=== PATIENT | female | born 1955 | race American Indian/Alaskan Native ===

== ENCOUNTER 2016-05-01 03:06 | Inpatient (IN) | payer MEDICAID ==
[2016-05-01] MEDS ORDERED: MORPHINE IV ONE (06:34)
[2016-05-01] MEDS ORDERED: ZOFRAN IV ONE (06:34)
[2016-05-01] MEDS ORDERED: ATIVAN IV ONE (06:34)
[2016-05-01 07:51] LABS: ISTAT Base Excess -6; ISTAT HCO3 20.6; ISTAT PCO2 43.6 (35-45); ISTAT PH 7.282 (7.35-7.45); ISTAT PO2 57 (80-105); ISTAT SO2 85; ISTAT TCO2 22
--- NOTE | 2016-05-01 07:53 | XRay Report ---
Single view chest: Compared to 09/11/15. History: Hypertension. Findings: Cardiomegaly. Trachea is midline. Stable Port-A-Cath. No consolidation, pneumothorax or pleural effusion. Impression: Cardiomegaly. No acute lung changes.
--- NOTE | 2016-05-01 08:38 | Admit Criteria Form ---
Admission Criteria Documentation: HEART FAILURE: COMMON COMPLICATIONS Clinical Indications for Inpatient Care (Place 'X' for any and all applicable criteria): Ongoing inpatient care may be indicated for heart failure with ANY ONE of the following (1)(2)(3)(4)(5): [ ]I. Ongoing need for care for primary condition requiring frequent therapy adjustments because of changes in cardiac function (eg, drug dosage changes for drugs that are renally metabolized) [ ]II. New-onset heart failure [ ]III. Heart failure with decreased urine output not responsive to attempts to optimize volume status [ ]IV. Acute cardiac ischemia causing or associated with failure [X ]V. Complications of heart failure, including ANY ONE of the following: [ ]a) Pericardial effusion [ ]b) Symptomatic pleural effusion [ X]c) O2 saturation <90% or PO2 < 60 mm Hg (8.0 kPa) on room air or require baseline supplemental O2 [ X]d) Tachypnea [X ]e) Dyspnea [ ]f) Syncope [ ]g) Change in mental status [ ]h) Acute renal insufficiency that is severe (reduction of more than 50% in estimated glomerular filtration rate from baseline) or progressive reduction of more than 25% in estimated glomerular filtration rate from baseline, with creatinine continuing to rise) [ ]i) Hemodynamic instability [ ]j) Anasarca [ ]k) Clinically significant metabolic abnormalities due to heart failure (eg, new-onset metabolic acidosis) Extended stay beyond goal length of stay for primary condition may be needed until ALL of the following are present(1)(3): [ ]a) Stable and effective diuretic regimen established (or patient on stable dialysis regimen if in chronic renal failure) [ ]b) Breathing comfortably at rest [ ]c) Saturation of arterial oxygen greater than 90% or at acceptable baseline [ ]d) Pulmonary edema absent or improved [ ]e) Hemodynamic stability [ ]f) Volume status acceptable on oral medication [ ]g) Peripheral or sacral edema absent or improved [ ]h) Renal function stable and manageable at a lower level of care [ ]i) Complications (eg, pleural effusion) resolved or manageable at a lower level of care [ ]j) Patient or caregiver has received written discharge instructions or educational material addressing activity level, diet, discharge medications, follow-up appointment, weight monitoring, and what to do if symptoms worsen The original [employer] content created by [employer] has been revised. The portions of the content which have been revised are identified through the use of italic text or in bold, and [facility] has neither reviewed nor approved the modified material.All other unmodified content is copyright [facility]. Please see references footnoted in the original [facility] edition 2016 Admission Criteria Met: Yes
[2016-05-01 08:39] LABS: Eosinophils % (Auto) 3.2 % (0.0-4.3); Hematocrit 42.7 % (30.3-42.9); Hemoglobin 13.5 gm/dl (10.1-14.3); Mean Corpuscular HGB Conc 32 % (30-34); Mean Corpuscular Hemoglobin 29 pg (28-32); Mean Corpuscular Volume 91 fl (79-97); Platelet Count 218 K/mm3 (140-440); Red Blood Count 4.67 M/mm3 (3.65-5.03); Red Cell Distribution Width 14.3 % (13.2-15.2); White Blood Count 5.6 K/mm3 (4.5-11.0)
[2016-05-01 08:48] LABS: Anion Gap 19 mmol/L; BUN/Creatinine Ratio 16.15; Blood Urea Nitrogen 21 mg/dL (7-17); Calcium 8.7 mg/dL (8.4-10.2); Carbon Dioxide 22 mmol/L (22-30); Chloride 103.5 mmol/L (98-107); Glucose 157 mg/dL (65-100); INR 1.04 (0.87-1.13); Potassium 4.3 mmol/L (3.6-5.0); Sodium 140 mmol/L (137-145)
[2016-05-01 08:49] LABS: Partial Thromboplastin Time 26.9 Sec. (24.2-36.6)
[2016-05-01 08:50] LABS: Alanine Aminotransferase 19 units/L (7-56); Albumin/Globulin Ratio 1.7 %; Alkaline Phosphatase 63 units/L (35-129); Bilirubin,Total 0.3 mg/dL (0.1-1.2); Total Protein 6.4 g/dL (6.3-8.2)
[2016-05-01 08:56] LABS: Bilirubin,Direct < 0.2 mg/dL (0-0.2); Bilirubin,Indirect 0.1 mg/dL
--- NOTE | 2016-05-01 09:23 | Emergency Department Report ---
ED General Adult HPI - General Chief complaint: Chest Pain Stated complaint: EDELMIRA Time Seen by Provider: 05/01/16 06:19 Source: patient, EMS Mode of arrival: Stretcher Limitations: No Limitations - History of Present Illness Initial comments: Presents via EMS for difficulty in breathing and pain. She states that she's had chest pressure for 2 weeks. Really she stated that she had "elephants dancing in her head". However on arrival she did not complain of significant headache. She was quite anxious and hyperventilating. I discussed her case with Dr. Ortiz who is familiar with this patient. He states that she has a history of crack cocaine abuse. The patient herself states that she has emphysema and has never been able to get home oxygen although she states she thinks she needs it. She is tobacco dependent. Denies any recent fever or chills. -: Gradual, week(s) Location: chest (pressure 2 weeks intermittently) Radiation: non-radiation Quality: other Consistency: intermittent, now resolved (headache resolved) Improves with: none Worsens with: none Associated Symptoms: denies other symptoms, chest pain, shortness of breath Treatments Prior to Arrival: none - Related Data Home Medications Medication Instructions Recorded Confirmed Last Taken Albuterol Sulfate [Proventil HFA] 1 - 2 puff IH Q4H PRN 11/22/12 05/01/16 04:00 1-2 Clopidogrel [Plavix] 75 mg PO QDAY 11/22/12 05/01/16 12/30/12 04:00 75mg Losartan [Cozaar] 100 mg PO QDAY 11/22/12 05/01/16 12/30/12 04:00 100mg hydrALAZINE [Apresoline TAB] 25 mg PO Q12H 11/22/12 05/01/16 12/30/12 04:00 25mg Gabapentin [Neurontin] 300 mg PO Q8HR 09/11/15 05/01/16 Unknown Insulin Detemir [Levemir VIAL] 40 unit SQ QHS 09/15/15 05/01/16 09/11/15 20:00 40 units ALPRAZolam [Xanax TAB] 0.5 mg PO TID PRN 05/01/16 05/01/16 Unknown Allopurinol [Zyloprim] 100 mg PO QDAY 05/01/16 05/01/16 Unknown Carvedilol [Coreg] 6.25 mg PO BID 05/01/16 05/01/16 Unknown Citalopram [celeXA] 20 mg PO QDAY 05/01/16 05/01/16 Unknown Clopidogrel [Plavix] 75 mg PO QDAY 05/01/16 05/01/16 Unknown Furosemide [Lasix TAB] 40 mg PO QDAY 05/01/16 05/01/16 Unknown HYDROcodone/APAP 10-325 [[place] 1 each PO DAILY 05/01/16 05/01/16 Unknown 10/325] Hydrochlorothiazide [Hctz] 12.5 mg PO QDAY 05/01/16 05/01/16 Unknown Pantoprazole [Protonix] 40 mg PO QDAY 05/01/16 05/01/16 Unknown Ranitidine HCl [Acid Control] 150 mg PO DAILY 05/01/16 05/01/16 Unknown Zolpidem [Ambien] 5 mg PO QHS PRN 05/01/16 05/01/16 Unknown amLODIPine [Norvasc] 10 mg PO DAILY 05/01/16 05/01/16 Unknown Allergies Allergy/AdvReac Type Severity Reaction Status Date / Time BONNIE Inhibitors Allergy Rash Verified 10/21/14 14:32 aspirin Allergy Rash Verified 10/21/14 14:32 peach [[place]] Allergy Rash Verified 10/21/14 14:32 ED Review of Systems ROS: Stated complaint: EDELMIRA Other details as noted in HPI Constitutional: denies: chills, fever Eyes: denies: eye pain, eye discharge, vision change ENT: denies: ear pain, throat pain Respiratory: shortness of breath. denies: cough, wheezing Cardiovascular: chest pain. denies: palpitations Endocrine: no symptoms reported Gastrointestinal: denies: abdominal pain, nausea, diarrhea Genitourinary: denies: urgency, dysuria, discharge Musculoskeletal: denies: back pain, joint swelling, arthralgia Skin: denies: rash, lesions Neurological: denies: headache, weakness, paresthesias Psychiatric: anxiety. denies: depression Hematological/Lymphatic: denies: easy bleeding, easy bruising ED Past Medical Hx - Past Medical History Hx Hypertension: Yes Hx Heart Attack/AMI: Yes Hx Congestive Heart Failure: Yes Hx Diabetes: Yes Hx Renal Disease: Yes (history of dialysis but has not required dialysis since May 2012) Hx Headaches / Migraines: Yes Hx COPD: Yes Additional medical history: History of [place] in the 1980s - Surgical History Additional Surgical History: stents in bilateral kidneys - Social History Smoking Status: Never Smoker Substance Use Type: Alcohol, Cocaine (according to Dr. Ortiz) - Medications Home Medications: Home Medications Medication Instructions Recorded Confirmed Last Taken Type Albuterol Sulfate [Proventil HFA] 1 - 2 puff IH Q4H PRN 11/22/12 05/01/16 04:00 History 1-2 Clopidogrel [Plavix] 75 mg PO QDAY 11/22/12 05/01/16 12/30/12 04:00 History 75mg Losartan [Cozaar] 100 mg PO QDAY 11/22/12 05/01/16 12/30/12 04:00 History 100mg hydrALAZINE [Apresoline TAB] 25 mg PO Q12H 11/22/12 05/01/16 12/30/12 04:00 History 25mg Gabapentin [Neurontin] 300 mg PO Q8HR 09/11/15 05/01/16 Unknown History Insulin Detemir [Levemir VIAL] 40 unit SQ QHS 09/15/15 05/01/16 09/11/15 20:00 History 40 units ALPRAZolam [Xanax TAB] 0.5 mg PO TID PRN 05/01/16 05/01/16 Unknown History Allopurinol [Zyloprim] 100 mg PO QDAY 05/01/16 05/01/16 Unknown History Carvedilol [Coreg] 6.25 mg PO BID 05/01/16 05/01/16 Unknown History Citalopram [celeXA] 20 mg PO QDAY 05/01/16 05/01/16 Unknown History Clopidogrel [Plavix] 75 mg PO QDAY 05/01/16 05/01/16 Unknown History Furosemide [Lasix TAB] 40 mg PO QDAY 05/01/16 05/01/16 Unknown History HYDROcodone/APAP 10-325 [[place] 1 each PO DAILY 05/01/16 05/01/16 Unknown History 10/325] Hydrochlorothiazide [Hctz] 12.5 mg PO QDAY 05/01/16 05/01/16 Unknown History Pantoprazole [Protonix] 40 mg PO QDAY 05/01/16 05/01/16 Unknown History Ranitidine HCl [Acid Control] 150 mg PO DAILY 05/01/16 05/01/16 Unknown History Zolpidem [Ambien] 5 mg PO QHS PRN 05/01/16 05/01/16 Unknown History amLODIPine [Norvasc] 10 mg PO DAILY 05/01/16 05/01/16 Unknown History ED Physical Exam - General Limitations: No Limitations General appearance: alert, in no apparent distress, anxious - Head Head exam: Present: atraumatic, normocephalic - Eye Eye exam: Present: normal appearance. Absent: scleral icterus - ENT ENT exam: Present: normal exam, mucous membranes moist - Neck Neck exam: Present: normal inspection - Respiratory Respiratory exam: Present: normal lung sounds bilaterally, other ( hyperventilating). Absent: respiratory distress - Cardiovascular Cardiovascular Exam: Present: regular rate, normal rhythm. Absent: systolic murmur, diastolic murmur, rubs, gallop - GI/Abdominal GI/Abdominal exam: Present: soft, normal bowel sounds. Absent: distended, tenderness, guarding, rebound - Extremities Exam Extremities exam: Present: normal inspection - Back Exam Back exam: Present: normal inspection - Neurological Exam Neurological exam: Present: alert, oriented X3, CN II-XII intact. Absent: motor sensory deficit - Psychiatric Psychiatric exam: Present: agitated, anxious - Skin Skin exam: Present: warm, dry, intact, normal color. Absent: rash ED Course Vital Signs 05/01/16 05/01/16 05/01/16 03:27 03:30 03:40 Temperature Pulse Rate 87 Respiratory 20 Rate Blood Pressure 177/122 171/115 171/115 Blood Pressure [Left] O2 Sat by Pulse 99 99 Oximetry 05/01/16 05/01/16 05/01/16 03:43 03:49 03:50 Temperature 97.8 F 97.8 F Pulse Rate 88 88 81 Respiratory 20 24 Rate Blood Pressure 171/155 171/115 Blood Pressure 171/115 [Left] O2 Sat by Pulse 98 98 99 Oximetry 05/01/16 05/01/16 05/01/16 04:00 04:10 04:20 Temperature Pulse Rate 83 80 86 Respiratory 22 22 29 H Rate Blood Pressure 165/113 165/113 165/113 Blood Pressure [Left] O2 Sat by Pulse 97 96 98 Oximetry 02/17/17 02/17/17 02/17/17 04:30 04:40 04:50 Temperature Pulse Rate 75 88 72 Respiratory 28 H 18 20 Rate Blood Pressure 176/107 176/107 176/107 Blood Pressure [Left] O2 Sat by Pulse 95 99 97 Oximetry 05/01/16 05/01/16 05/01/16 05:00 05:10 05:20 Temperature Pulse Rate 77 78 80 Respiratory 24 22 24 Rate Blood Pressure 162/126 162/126 162/126 Blood Pressure [Left] O2 Sat by Pulse 99 99 99 Oximetry 05/01/16 05/01/16 05/01/16 05:30 05:40 05:50 Temperature Pulse Rate 67 67 75 Respiratory 22 20 21 Rate Blood Pressure 183/109 183/109 183/109 Blood Pressure [Left] O2 Sat by Pulse 97 98 94 Oximetry 05/01/16 05/01/16 05/01/16 06:00 06:10 06:20 Temperature Pulse Rate 78 83 Respiratory 19 14 Rate Blood Pressure 175/108 175/108 175/108 Blood Pressure [Left] O2 Sat by Pulse 92 96 98 Oximetry 05/01/16 05/01/16 05/01/16 06:30 06:40 06:50 Temperature Pulse Rate Respiratory Rate Blood Pressure 175/108 182/110 182/110 Blood Pressure [Left] O2 Sat by Pulse 97 97 97 Oximetry 05/01/16 05/01/16 05/01/16 06:57 07:00 07:10 Temperature Pulse Rate 86 85 Respiratory 20 29 H 25 H Rate Blood Pressure 144/80 144/80 Blood Pressure [Left] O2 Sat by Pulse 92 90 Oximetry 05/01/16 05/01/16 05/01/16 07:20 07:30 07:40 Temperature Pulse Rate 84 85 85 Respiratory 18 12 15 Rate Blood Pressure 144/80 178/126 178/126 Blood Pressure [Left] O2 Sat by Pulse 92 95 94 Oximetry 05/01/16 05/01/16 05/01/16 07:50 08:00 08:10 Temperature Pulse Rate 87 82 79 Respiratory 24 20 16 Rate Blood Pressure 178/126 174/116 174/116 Blood Pressure [Left] O2 Sat by Pulse 96 98 98 Oximetry 05/01/16 05/01/16 05/01/16 08:20 08:30 08:40 Temperature Pulse Rate 81 80 88 Respiratory 20 20 28 H Rate Blood Pressure 174/116 157/106 157/106 Blood Pressure [Left] O2 Sat by Pulse 94 95 91 Oximetry 05/01/16 05/01/16 05/01/16 08:50 09:00 09:10 Temperature Pulse Rate 78 82 80 Respiratory 17 16 15 Rate Blood Pressure 157/106 158/103 157/106 Blood Pressure [Left] O2 Sat by Pulse 99 95 94 Oximetry 05/01/16 09:20 Temperature Pulse Rate 86 Respiratory 18 Rate Blood Pressure 157/106 Blood Pressure [Left] O2 Sat by Pulse 90 Oximetry - Reevaluation(s) Reevaluation #1: The patient was given analgesia and anxiolytic on arrival. This was of benefit. On reexamination found the patient to be in no distress with pulse oximetry of 98% on 3 L. Nurse does note that when the patient is sleepy at her pulse oximetry does go down into the low 90s. There was 1 value even lower. Patient was given labetalol for blood pressure management. I spoke to Dr. Ortiz who requested that the hospitalist admit. I spoke to Dr. Martino who will be admitting the patient. Her chest x-ray did not show signs of cardiac decompensation. Her troponin was negative. Her EKG shows no evidence of acute ischemia. He has had been previously negative nuclear perfusion study. She is a patient of [facility]. 05/01/16 09:57 ED Medical Decision Making - Lab Data Result diagrams: 05/01/16 Unknown 05/01/16 Unknown Laboratory Results - last 24 hr 05/01/16 05/01/16 05/01/16 07:46 Unknown Unknown WBC 5.6 RBC 4.67 Hgb 13.5 Hct 42.7 MCV 91 MCH 29 MCHC 32 RDW 14.3 Plt Count 218 Lymph % (Auto) 34.2 Hendricks % (Auto) 8.7 H Eos % (Auto) 3.2 Baso % (Auto) 1.0 Lymph # 1.9 Hendricks # 0.5 Eos # 0.2 Baso # 0.1 Seg Neutrophils % 52.9 Seg Neutrophils # 3.0 PT INR APTT D-Dimer POC ABG pH 7.282 L POC ABG pCO2 43.6 POC ABG pO2 57 L POC ABG HCO3 20.6 POC ABG Total CO2 22 POC ABG O2 Sat 85 POC ABG Base Excess -6 VBG pH FiO2 28 Sodium 140 Potassium 4.3 Chloride 103.5 Carbon Dioxide 22 Anion Gap 19 BUN 21 H Creatinine 1.3 H Estimated GFR 51 BUN/Creatinine Ratio 16.15 Glucose 157 H Calcium 8.7 Total Bilirubin Direct Bilirubin Indirect Bilirubin AST ALT Alkaline Phosphatase Troponin T < 0.010 NT-Pro-B Natriuret Pep Total Protein Albumin Albumin/Globulin Ratio Ketones 05/01/16 05/01/16 05/01/16 Unknown Unknown Unknown WBC RBC Hgb Hct MCV MCH MCHC RDW Plt Count Lymph % (Auto) Hendricks % (Auto) Eos % (Auto) Baso % (Auto) Lymph # Hendricks # Eos # Baso # Seg Neutrophils % Seg Neutrophils # PT 13.5 INR 1.04 APTT 26.9 D-Dimer 169.64 POC ABG pH POC ABG pCO2 POC ABG pO2 POC ABG HCO3 POC ABG Total CO2 POC ABG O2 Sat POC ABG Base Excess VBG pH FiO2 Sodium Potassium Chloride Carbon Dioxide Anion Gap BUN Creatinine Estimated GFR BUN/Creatinine Ratio Glucose Calcium Total Bilirubin 0.3 Direct Bilirubin < 0.2 Indirect Bilirubin 0.1 AST 18 ALT 19 Alkaline Phosphatase 63 Troponin T NT-Pro-B Natriuret Pep 1793 H Total Protein 6.4 Albumin 4.0 Albumin/Globulin Ratio 1.7 Ketones 1.5 05/01/16 Unknown WBC RBC Hgb Hct MCV MCH MCHC RDW Plt Count Lymph % (Auto) Hendricks % (Auto) Eos % (Auto) Baso % (Auto) Lymph # Hendricks # Eos # Baso # Seg Neutrophils % Seg Neutrophils # PT INR APTT D-Dimer POC ABG pH POC ABG pCO2 POC ABG pO2 POC ABG HCO3 POC ABG Total CO2 POC ABG O2 Sat POC ABG Base Excess VBG pH 7.327 FiO2 Sodium Potassium Chloride Carbon Dioxide Anion Gap BUN Creatinine Estimated GFR BUN/Creatinine Ratio Glucose Calcium Total Bilirubin Direct Bilirubin Indirect Bilirubin AST ALT Alkaline Phosphatase Troponin T NT-Pro-B Natriuret Pep Total Protein Albumin Albumin/Globulin Ratio Ketones - EKG Data -: EKG Interpreted by Me EKG shows normal: sinus rhythm, intervals, QRS complexes, ST-T waves Rate: normal - EKG Data Interpretation: LVH (no evidence of acute ischemia), other (affect axis deviation) - Radiology Data interpreted by me: Chest x-ray shows no acute process Critical care attestation.: If time is entered above; I have spent that time in minutes in the direct care of this critically ill patient, excluding procedure time. ED Disposition Clinical Impression: Dilated cardiomyopathy, Hypoxia Chest pain Qualifiers: Chest pain type: unspecified Qualified Code(s): R07.9 - Chest pain, unspecified Acute headache Qualifiers: Headache type: unspecified Intractability: not intractable Qualified Code(s): R51 - Headache COPD (chronic obstructive pulmonary disease) Qualifiers: COPD type: unspecified COPD Qualified Code(s): J44.9 - Chronic obstructive pulmonary disease, unspecified Disposition: OP ADMITTED IP TO THIS HOSP Is pt being admited?: Yes Does the pt Need Aspirin: Yes Condition: Stable Instructions: Chest Pain (ED), Chronic Obstructive Pulmonary Disease (ED) Referrals: JUAN F ORTIZ DO [Primary Care Provider] - 3-5 Days Time of Disposition: 10:04
[2016-05-01] MEDS ORDERED: NORMODYNE IV ONE (09:24)
[2016-05-01] MEDS ORDERED: LOVENOX SUB-Q SCH (10:00)
[2016-05-01] MEDS ORDERED: D50W (25GM) IV PRN (10:04)
[2016-05-01] MEDS ORDERED: SODIUM CHLORIDE FLUSH SYRINGE 10 ML IV PRN (10:10)
[2016-05-01] MEDS ORDERED: BABY ASPIRIN PO STA (10:10)
[2016-05-01] MEDS ORDERED: DUONEB 0.5 MG-3 MG/3 ML SOLN IH ONE (10:13)
[2016-05-01] MEDS ORDERED: LASIX PO SCH (11:00)
[2016-05-01] MEDS ORDERED: DUONEB 0.5 MG-3 MG/3 ML SOLN IH SCH (12:00)
[2016-05-01] MEDS: NOVOLOG SUB-Q SCH ×3 (13:03→21:27)
[2016-05-01] MEDS ORDERED: NORVASC ONE (13:03)
[2016-05-01] MEDS ORDERED: COREG ONE (13:03)
[2016-05-01] MEDS ORDERED: PLAVIX ONE (13:04)
[2016-05-01] MEDS ORDERED: celeXA ONE (13:04)
[2016-05-01] MEDS ORDERED: NORCO 10/325 ONE (13:05)
[2016-05-01] MEDS: celeXA PO SCH (13:13)
[2016-05-01] MEDS: COREG PO SCH ×2 (13:13→21:23)
[2016-05-01] MEDS: APRESOLINE PO SCH ×2 (13:13→21:31)
[2016-05-01] MEDS: PLAVIX PO SCH (13:14)
[2016-05-01] MEDS: NORCO 10/325 PO SCH (13:14)
[2016-05-01] MEDS: NORVASC PO SCH (13:14)
[2016-05-01 13:27] LABS: Urine Drugs of Abuse Note Disclamer
[2016-05-01] MEDS: PROVENTIL IH SCH ×4 (13:33→23:27)
--- NOTE | 2016-05-01 15:15 | Event Note ---
Date: 05/01/16 I have spoken to thr ER Doc, and records/notes reviewed. Patient presented with SOB/anxiety w/u showed elevated PBNP ,consistent with her CMP/CHF, also she is positive for THC,.Her ABG shows PH of 7.22.. She has been grossly non complaint in the office.Sh will get diuretic.
[2016-05-01] MEDS: LOVENOX SUB-Q SCH (18:00)
--- NOTE | 2016-05-01 19:22 | History and Physical Report ---
History of Present Illness Date of examination: 05/01/16 Date of admission: 05/01/16 09:58 Chief complaint: Shortness of breath History of present illness: Patient is a 60-year-old lady who was a history of bilateral ear infection hypertension COPD and diabetes mellitus left-sided chest pain that was dull in nature, nonradiating. Not associated diaphoresis. However chest pain was described as dull and very severe. Patient presented emergency department where patient was found to be hyperventilating with abnormal ABG with a pH of 7.28. Chest x-ray shows cardiomegaly with no acute changes. BUN was 21 and creatinine was 1.3. ProBNP was 1793 and glucose was 157. Initial troponin level was normal. Admission was therefore requested. Past History Past Medical History: acute [place], COPD (w), diabetes, hypertension, other (had end -stage renal disease on hemodialysis that was eventually discontinued in 2012 after having a function improved) Past Surgical History: Other (renal stents many years ago) Social history: denies: smoking, alcohol abuse Family history: denies: no significant family history Medications and Allergies Allergies Allergy/AdvReac Type Severity Reaction Status Date / Time BONNIE Inhibitors Allergy Rash Verified 10/21/14 14:32 aspirin Allergy Rash Verified 10/21/14 14:32 peach [[place]] Allergy Rash Verified 10/21/14 14:32 Home Medications Medication Instructions Recorded Confirmed Last Taken Type Albuterol Sulfate [Proventil HFA] 1 - 2 puff IH Q4H PRN 11/22/12 05/01/16 04:00 History 1-2 Clopidogrel [Plavix] 75 mg PO QDAY 11/22/12 05/01/16 12/30/12 04:00 History 75mg Losartan [Cozaar] 100 mg PO QDAY 11/22/12 05/01/16 12/30/12 04:00 History 100mg hydrALAZINE [Apresoline TAB] 25 mg PO Q12H 11/22/12 05/01/16 12/30/12 04:00 History 25mg Gabapentin [Neurontin] 300 mg PO Q8HR 09/11/15 05/01/16 Unknown History Insulin Detemir [Levemir VIAL] 40 unit SQ QHS 09/15/15 05/01/16 09/11/15 20:00 History 40 units ALPRAZolam [Xanax TAB] 0.5 mg PO TID PRN 05/01/16 05/01/16 Unknown History Allopurinol [Zyloprim] 100 mg PO QDAY 05/01/16 05/01/16 Unknown History Carvedilol [Coreg] 6.25 mg PO BID 05/01/16 05/01/16 Unknown History Citalopram [celeXA] 20 mg PO QDAY 05/01/16 05/01/16 Unknown History Clopidogrel [Plavix] 75 mg PO QDAY 05/01/16 05/01/16 Unknown History Furosemide [Lasix TAB] 40 mg PO QDAY 05/01/16 05/01/16 Unknown History HYDROcodone/APAP 10-325 [[place] 1 each PO DAILY 05/01/16 05/01/16 Unknown History 10/325] Hydrochlorothiazide [Hctz] 12.5 mg PO QDAY 05/01/16 05/01/16 Unknown History Pantoprazole [Protonix] 40 mg PO QDAY 05/01/16 05/01/16 Unknown History Ranitidine HCl [Acid Control] 150 mg PO DAILY 05/01/16 05/01/16 Unknown History Zolpidem [Ambien] 5 mg PO QHS PRN 05/01/16 05/01/16 Unknown History amLODIPine [Norvasc] 10 mg PO DAILY 05/01/16 05/01/16 Unknown History Active Meds: Active Medications Acetaminophen/Hydrocodone Bitart ([place] 10/325) 1 each PO DAILY [facility] Last Admin: 05/01/16 13:14 Dose: 1 each Albuterol (Proventil) 2.5 mg IH Q4HRT [facility] Last Admin: 05/01/16 17:37 Dose: 2.5 mg Allopurinol (Zyloprim) 100 mg PO QDAY [facility] Alprazolam (Xanax) 0.5 mg PO TID PRN PRN Reason: Anxiety Amlodipine Besylate (Norvasc) 10 mg PO DAILY [facility] Last Admin: 05/01/16 13:14 Dose: 10 mg Aspirin (Baby Aspirin) 325 mg PO ONCE STA Stop: 05/01/16 10:11 Carvedilol (Coreg) 6.25 mg PO BID [facility] Last Admin: 05/01/16 13:13 Dose: 6.25 mg Citalopram Hydrobromide (Celexa) 20 mg PO QDAY [facility] Last Admin: 05/01/16 13:13 Dose: 20 mg Clopidogrel Bisulfate (Plavix) 75 mg PO QDAY [facility] Last Admin: 05/01/16 13:14 Dose: 75 mg Dextrose (D50w (25gm)) 50 ml IV PRN PRN PRN Reason: Hypoglycemia Enoxaparin Sodium (Lovenox) 40 mg SUB-Q QDAY@1000 [facility] Furosemide (Lasix) 20 mg IV QDAY [facility] Gabapentin (Neurontin) 300 mg PO Q8HR [facility] Hydralazine HCl (Apresoline) 25 mg PO Q12H [facility] Last Admin: 05/01/16 13:13 Dose: 25 mg Insulin Aspart (Novolog) 0 units SUB-Q ACHS [facility] PRN Reason: Protocol Last Admin: 05/01/16 13:03 Dose: Not Given Insulin Detemir (Levemir) 40 units SUB-Q QHS [facility] Losartan Potassium (Cozaar) 100 mg PO QDAY [facility] Sodium Chloride (Sodium Chloride Flush Syringe 10 Ml) 10 ml IV PRN PRN PRN Reason: LINE FLUSH Review of system Constitutional: Well Nouridhed and Well developed. Head: NC/ AT Eyes: Denies any visual impairments. No discharge from the eyes Nose: Denies any rhinorrhea or epistaxis Throats: Denies any post nasal drainage. Ears: Denies any hearing deficits Cardiovascular system: Has chest pain , shortness of breath, orthopnea, paroxysmal nocturnal dyspnea, Respiratory system: Denies any cough, difficulty breathing, wheezing, pleuritic chest pain, Gastrointestinal system: Denies any abdominal pain, nausea vomiting, hematemesis or melena. Neurological system: Denies any headache, slurred speech, facial droop, lateralizing weakness Genitalia system: Denies any dysuria, urinary frequency or urgency, urethral discharge Skin: No rashes, hyperpigmented spots. Hematological: Denies any cervical tenderness hemorrhages or petechia. Immunological: Denies any multiple septic spots, Lymphatic: Denies any generalized lymphadenopathy. Endocrine: Denies any polyuria, polydipsia, polyphagia. No heat or cold intolerance. Musculoskeletal system: No joint pain or swelling. Psych: No visual, tactile, auditory or hallucination Exam - Constitutional Vitals: Temp Pulse Resp BP Pulse Ox 97.6 F 80 20 154/113 100 02/17/17 16:00 05/01/16 18:48 05/01/16 17:48 05/01/16 16:00 05/01/16 16:00 General appearance: Present: no acute distress, well-nourished - EENT Eyes: Present: PERRL ENT: hearing intact, clear oral mucosa - Neck Neck: Present: supple, normal ROM - Respiratory Respiratory effort: normal Respiratory: bilateral: diminished - Cardiovascular Heart Sounds: Present: S1 & S2. Absent: rub, click - Extremities Extremities: pulses symmetrical, No edema Peripheral Pulses: within normal limits - Abdominal General gastrointestinal: Present: soft, non-tender, non-distended, normal bowel sounds Female genitourinary: Present: normal - Integumentary Integumentary: Present: clear, warm, dry - Musculoskeletal Musculoskeletal: gait normal, strength equal bilaterally - Psychiatric Psychiatric: appropriate mood/affect, intact judgment & insight - Neurologic Neurologic: CNII-XII intact, moves all extremities Results - Labs CBC & Chem 7: 05/01/16 Unknown 05/01/16 Unknown Labs: Abnormal lab results 05/01/16 05/01/16 05/01/16 Range/Units Unknown Unknown Unknown [place] % (Auto) 8.7 H (0.0-7.3) % BUN 21 H (7-17) mg/dL Creatinine 1.3 H (0.7-1.2) mg/dL Glucose 157 H (65-100) mg/dL NT-Pro-B Natriuret Pep 1793 H (0-900) pg/mL Assessment and Plan 1. Chest pain rule out acute coronary disease. Patient commenced on oxygen nitroglycerin aspirin and morphine. Carotids consult. Stress thallium in the morning. 2. CHF exacerbation: we will obtain Echocardiogram to evaluate ventricular function. ProBNP found to be elevated to 1793. Continue patient diuresis, beta blockers. ACEI, Strict input and output and daily weights. 3. COPD exacerbation. Continue patient on bronchodilators. 4. Acute kidney injury: Likely secondary to diuresis. Current BUN/creatinine. However given a history of end-stage renal disease on hemodialysis in the past and (2012. We'll obtain renal ultrasound. 5. Diabetes mellitus. Glucose is 157. Will obtain A1c. Consistent carbohydrates diet. Sliding scale insulin. Urine microalbumin. 6. DVT prophylaxis with Lovenox, GI prophylaxis with Protonix Spent 35 minutes in direct patient care, review of medical records, laboratory and radiological data, as well as explanation of management plan to the patient.
[2016-05-01] MEDS: LASIX IV SCH (19:35)
[2016-05-01] MEDS: XANAX PO PRN (20:52)
[2016-05-01] MEDS: NEURONTIN PO SCH (21:23)
[2016-05-01] MEDS: LEVEMIR SUB-Q SCH (21:24)
[2016-05-01] MEDS: ZYLOPRIM PO SCH (21:26)
[2016-05-02] MEDS: APRESOLINE PO SCH ×3 (00:42→23:43)
[2016-05-02] MEDS: PROVENTIL IH SCH ×5 (04:28→19:11)
[2016-05-02] MEDS: NEURONTIN PO SCH ×3 (05:02→21:43)
[2016-05-02 05:42] LABS: Basophils % (Auto) 0.8 % (0.0-1.8); Hematocrit 41.7 % (30.3-42.9); Hemoglobin 13.1 gm/dl (10.1-14.3); Mean Corpuscular HGB Conc 31 % (30-34); Mean Corpuscular Hemoglobin 29 pg (28-32); Mean Corpuscular Volume 92 fl (79-97); Platelet Count 210 K/mm3 (140-440); Red Blood Count 4.53 M/mm3 (3.65-5.03); Red Cell Distribution Width 14.6 % (13.2-15.2); White Blood Count 5.5 K/mm3 (4.5-11.0)
[2016-05-02 07:23] LABS: Albumin 3.7 g/dL (3.9-5); Albumin/Globulin Ratio 1.5 %; BUN/Creatinine Ratio 18.33; Bilirubin,Total 0.2 mg/dL (0.1-1.2); Chloride 103.7 mmol/L (98-107); Potassium 4.7 mmol/L (3.6-5.0); Total Protein 6.2 g/dL (6.3-8.2)
[2016-05-02 07:24] LABS: Creatine Kinase 122 units/L (30-135)
[2016-05-02] MEDS: NOVOLOG SUB-Q SCH ×4 (08:19→23:43)
[2016-05-02] MEDS: celeXA PO SCH (10:12)
[2016-05-02] MEDS: PLAVIX PO SCH (10:12)
[2016-05-02] MEDS: ZYLOPRIM PO SCH (10:12)
[2016-05-02] MEDS: COZAAR PO SCH ×2 (10:12→10:50)
[2016-05-02] MEDS: COREG PO SCH ×2 (10:13→21:43)
[2016-05-02] MEDS: LASIX IV SCH ×2 (10:13→16:03)
[2016-05-02] MEDS: LOVENOX SUB-Q SCH (10:13)
[2016-05-02] MEDS: NORVASC PO SCH (10:13)
[2016-05-02] MEDS: NORCO 10/325 PO SCH ×3 (10:16→23:43)
--- NOTE | 2016-05-02 14:46 | Progress Note ---
Assessment and Plan Assessment and plan: 60F w pmh of CHF, non complaint with rx and medications 1. Chest pain; likely 2/2 uncontrolled CHF, serial trops negative, has had recent stress test in August 2015 which was negative, she is known to have NICM 2. CHF exacerbation: Increase lasix dose to 40mg BID, fup echo, cardiology input appreciated. 3. COPD exacerbations, not in exacerbation. Continue patient on bronchodilators. 4. Acute kidney injury: has now resolved with Diuresis 5. Diabetes mellitus. continue sliding scale 6. DVT prophylaxis with Lovenox, GI prophylaxis with Protonix 7. Hydradenitis; wound care and bacitracin ointment History Interval history: continues to have sob and chest pain, she is c/o mild headache and itching at Left buttock Hospitalist Physical - Physical exam Narrative exam: General: moderate respiratory distress, unable to speak in full sentences HEENT: MMM, EOMI cardiac: S1-S2 heard lungs: crackles in lower half of both lungs abdomen: soft, nontender, bowel sounds positive, distended with shifting dullness extremities:anarsarca, edema in all extremities, Skin: purulent rash to right buttock and multiple old scars cw hydradenitis Neuro: no focal deficit Psych: appropriate behavior and mood, cognition intact - Constitutional Vitals: Temp Pulse Resp BP Pulse Ox 97.6 F 77 16 145/87 96 05/02/16 08:10 05/02/16 14:35 05/02/16 14:35 05/02/16 10:12 05/02/16 10:00 General appearance: Present: no acute distress, well-nourished Results - Labs CBC & Chem 7: 05/02/16 04:00 05/02/16 04:00 Labs: Laboratory Last Values WBC 5.5 K/mm3 (4.5-11.0) 05/02/16 04:00 RBC 4.53 M/mm3 (3.65-5.03) 05/02/16 04:00 Hgb 13.1 gm/dl (10.1-14.3) 05/02/16 04:00 Hct 41.7 % (30.3-42.9) 05/02/16 04:00 MCV 92 fl (79-97) 05/02/16 04:00 MCH 29 pg (28-32) 05/02/16 04:00 MCHC 31 % (30-34) 05/02/16 04:00 RDW 14.6 % (13.2-15.2) 05/02/16 04:00 Plt Count 210 K/mm3 (140-440) 05/02/16 04:00 Lymph % (Auto) 34.9 % (13.4-35.0) 05/02/16 04:00 [place] % (Auto) 10.2 % (0.0-7.3) H 05/02/16 04:00 Eos % (Auto) 4.0 % (0.0-4.3) 05/02/16 04:00 Baso % (Auto) 0.8 % (0.0-1.8) 05/02/16 04:00 Lymph # 1.9 K/mm3 (1.2-5.4) 05/02/16 04:00 [place] # 0.6 K/mm3 (0.0-0.8) 05/02/16 04:00 Eos # 0.2 K/mm3 (0.0-0.4) 05/02/16 04:00 Baso # 0.0 K/mm3 (0.0-0.1) 05/02/16 04:00 Seg Neutrophils % 50.1 % (40.0-70.0) 05/02/16 04:00 Seg Neutrophils # 2.8 K/mm3 (1.8-7.7) 05/02/16 04:00 PT 13.5 Sec. (12.2-14.9) 05/01/16 Unknown INR 1.04 (0.87-1.13) 05/01/16 Unknown APTT 26.9 Sec. (24.2-36.6) 05/01/16 Unknown D-Dimer 169.64 ng/mlDDU (0-234) 05/01/16 Unknown POC ABG pH 7.282 (7.35-7.45) L 05/01/16 07:46 POC ABG pCO2 43.6 (35-45) 05/01/16 07:46 POC ABG pO2 57 (80-105) L 05/01/16 07:46 POC ABG HCO3 20.6 05/01/16 07:46 POC ABG Total CO2 22 05/01/16 07:46 POC ABG O2 Sat 85 05/01/16 07:46 POC ABG Base Excess -6 05/01/16 07:46 VBG pH 7.327 (7.320-7.420) 05/01/16 Unknown FiO2 28 % 05/01/16 07:46 Sodium 140 mmol/L (137-145) 05/02/16 04:00 Potassium 4.7 mmol/L (3.6-5.0) 05/02/16 04:00 Chloride 103.7 mmol/L (98-107) 05/02/16 04:00 Carbon Dioxide 25 mmol/L (22-30) 05/02/16 04:00 Anion Gap 16 mmol/L 05/02/16 04:00 BUN 22 mg/dL (7-17) H 05/02/16 04:00 Creatinine 1.2 mg/dL (0.7-1.2) 05/02/16 04:00 Estimated GFR 56 ml/min 05/02/16 04:00 BUN/Creatinine Ratio 18.33 % 05/02/16 04:00 Glucose 117 mg/dL (65-100) H 05/02/16 04:00 POC Glucose 212 (70-105) H 05/02/16 12:25 Calcium 8.0 mg/dL (8.4-10.2) L 05/02/16 04:00 Magnesium 1.9 mg/dL (1.7-2.3) 05/02/16 04:00 Total Bilirubin 0.2 mg/dL (0.1-1.2) 05/02/16 04:00 Direct Bilirubin < 0.2 mg/dL (0-0.2) 05/01/16 Unknown Indirect Bilirubin 0.1 mg/dL 05/01/16 Unknown AST 18 units/L (5-40) 05/02/16 04:00 ALT 16 units/L (7-56) 05/02/16 04:00 Alkaline Phosphatase 56 units/L (35-129) 05/02/16 04:00 Total Creatine Kinase 122 units/L (30-135) 05/02/16 04:00 CK-MB (CK-2) 3.0 ng/mL (0.0-4.0) 05/02/16 04:00 CK-MB (CK-2) Rel Index 2.4 (0-4) 05/02/16 04:00 Troponin T < 0.010 ng/mL (0.00-0.029) 05/02/16 04:00 NT-Pro-B Natriuret Pep 1793 pg/mL (0-900) H 05/01/16 Unknown Total Protein 6.2 g/dL (6.3-8.2) L 05/02/16 04:00 Albumin 3.7 g/dL (3.9-5) L 05/02/16 04:00 Albumin/Globulin Ratio 1.5 % 05/02/16 04:00 Urine Opiates Screen Presumptive negative 05/01/16 Unknown Urine Methadone Screen Presumptive negative 05/01/16 Unknown Ur Barbiturates Screen Presumptive negative 05/01/16 Unknown Ur Phencyclidine Scrn Presumptive negative 05/01/16 Unknown Ur Amphetamines Screen Presumptive negative 05/01/16 Unknown U Benzodiazepines Scrn Presumptive negative 05/01/16 Unknown Urine Cocaine Screen Presumptive negative 05/01/16 Unknown U Marijuana (THC) Screen Presumptive positive 05/01/16 Unknown Drugs of Abuse Note Disclamer 05/01/16 Unknown Ketones 1.5 mg/dL (0.2-2.8) 05/01/16 Unknown
[2016-05-02] MEDS: BACITRACIN ZINC OINT TP SCH (21:41)
[2016-05-02] MEDS: LEVEMIR SUB-Q SCH (21:43)
--- NOTE | 2016-05-02 21:44 | Event Note ---
Date: 05/02/16 Patients record reviewed again today, no new issues at this time, Patient tolerating her treatments fine. latest labs reviewed. IMP- CMP/CHF exa. HTN, CKD hx. THC abuse. REC continue to follow you.
[2016-05-02] MEDS ORDERED: MILK OF MAGNESIA PO PRN (22:55)
[2016-05-02] MEDS: XANAX PO PRN (23:45)
[2016-05-03] MEDS: LASIX IV SCH ×2 (02:40→15:14)
[2016-05-03] MEDS: PROVENTIL IH SCH ×4 (03:24→19:36)
[2016-05-03] MEDS: NORCO 10/325 PO SCH ×3 (05:07→21:33)
[2016-05-03] MEDS: NEURONTIN PO SCH ×3 (05:07→21:33)
[2016-05-03 05:22] LABS: Basophils % (Auto) 0.6 % (0.0-1.8); Hematocrit 40.6 % (30.3-42.9); Mean Corpuscular HGB Conc 32 % (30-34); Mean Corpuscular Hemoglobin 29 pg (28-32); Mean Corpuscular Volume 91 fl (79-97); Platelet Count 204 K/mm3 (140-440); Red Blood Count 4.47 M/mm3 (3.65-5.03); Red Cell Distribution Width 14.1 % (13.2-15.2); White Blood Count 4.6 K/mm3 (4.5-11.0)
--- NOTE | 2016-05-03 08:50 | Consultation ---
History of Present Illness Consult date: 05/03/16 Consult reason: shortness of breath History of present illness: 60 year old female admitted with shortness of breath, and inability to complete sentences because of the shortness of breath. ECG showing no ischemic changes and troponin is negative. She denies chest pain. Past History Past Medical History: acute [place], COPD (w), diabetes, hypertension, other (had end -stage renal disease on hemodialysis that was eventually discontinued in 2012 after having a function improved) Past Surgical History: Other (renal stents many years ago) Social history: denies: smoking, alcohol abuse Family history: denies: no significant family history Medications and Allergies Allergies Allergy/AdvReac Type Severity Reaction Status Date / Time BONNIE Inhibitors Allergy Rash Verified 10/21/14 14:32 aspirin Allergy Rash Verified 10/21/14 14:32 peach [[place]] Allergy Rash Verified 10/21/14 14:32 Home Medications Medication Instructions Recorded Confirmed Last Taken Type Albuterol Sulfate [Proventil HFA] 1 - 2 puff IH Q4H PRN 11/22/12 05/01/16 04:00 History 1-2 Clopidogrel [Plavix] 75 mg PO QDAY 11/22/12 05/01/16 12/30/12 04:00 History 75mg Losartan [Cozaar] 100 mg PO QDAY 11/22/12 05/01/16 12/30/12 04:00 History 100mg hydrALAZINE [Apresoline TAB] 25 mg PO Q12H 11/22/12 05/01/16 12/30/12 04:00 History 25mg Gabapentin [Neurontin] 300 mg PO Q8HR 09/11/15 05/01/16 Unknown History Insulin Detemir [Levemir VIAL] 40 unit SQ QHS 09/15/15 05/01/16 09/11/15 20:00 History 40 units ALPRAZolam [Xanax TAB] 0.5 mg PO TID PRN 05/01/16 05/01/16 Unknown History Allopurinol [Zyloprim] 100 mg PO QDAY 05/01/16 05/01/16 Unknown History Carvedilol [Coreg] 6.25 mg PO BID 05/01/16 05/01/16 Unknown History Citalopram [celeXA] 20 mg PO QDAY 05/01/16 05/01/16 Unknown History Clopidogrel [Plavix] 75 mg PO QDAY 05/01/16 05/01/16 Unknown History Furosemide [Lasix TAB] 40 mg PO QDAY 05/01/16 05/01/16 Unknown History HYDROcodone/APAP 10-325 [[place] 1 each PO DAILY 05/01/16 05/01/16 Unknown History 10/325] Hydrochlorothiazide [Hctz] 12.5 mg PO QDAY 05/01/16 05/01/16 Unknown History Pantoprazole [Protonix] 40 mg PO QDAY 05/01/16 05/01/16 Unknown History Ranitidine HCl [Acid Control] 150 mg PO DAILY 05/01/16 05/01/16 Unknown History Zolpidem [Ambien] 5 mg PO QHS PRN 05/01/16 05/01/16 Unknown History amLODIPine [Norvasc] 10 mg PO DAILY 05/01/16 05/01/16 Unknown History Active Meds: Active Medications Acetaminophen/Hydrocodone Bitart ([place] 10/325) 1 each PO Q6HR [facility] Last Admin: 05/03/16 05:07 Dose: 1 each Albuterol (Proventil) 2.5 mg IH Q6HRT [facility] Last Admin: 05/03/16 08:13 Dose: 2.5 mg Allopurinol (Zyloprim) 100 mg PO QDAY [facility] Last Admin: 05/02/16 10:12 Dose: 100 mg Alprazolam (Xanax) 0.5 mg PO TID PRN PRN Reason: Anxiety Last Admin: 05/02/16 23:45 Dose: 0.5 mg Amlodipine Besylate (Norvasc) 10 mg PO DAILY [facility] Last Admin: 05/02/16 10:13 Dose: 10 mg Bacitracin (Bacitracin Zinc Oint) 1 applic TP BID [facility] Last Admin: 05/02/16 21:41 Dose: 1 applic Carvedilol (Coreg) 6.25 mg PO BID [facility] Last Admin: 05/02/16 21:43 Dose: 6.25 mg Citalopram Hydrobromide (Celexa) 20 mg PO QDAY [facility] Last Admin: 05/02/16 10:12 Dose: 20 mg Clopidogrel Bisulfate (Plavix) 75 mg PO QDAY [facility] Last Admin: 02/18/17 10:12 Dose: 75 mg Dextrose (D50w (25gm)) 50 ml IV PRN PRN PRN Reason: Hypoglycemia Enoxaparin Sodium (Lovenox) 40 mg SUB-Q QDAY@1000 [facility] Last Admin: 05/02/16 10:13 Dose: 40 mg Furosemide (Lasix) 40 mg IV Q12H [facility] Last Admin: 05/03/16 02:40 Dose: 40 mg Gabapentin (Neurontin) 300 mg PO Q8HR [facility] Last Admin: 05/03/16 05:07 Dose: 300 mg Hydralazine HCl (Apresoline) 25 mg PO Q12H [facility] Last Admin: 05/02/16 23:43 Dose: 25 mg Insulin Aspart (Novolog) 0 units SUB-Q ACHS [facility] PRN Reason: Protocol Last Admin: 05/02/16 23:43 Dose: Not Given Insulin Detemir (Levemir) 40 units SUB-Q QHS [facility] Last Admin: 05/02/16 21:43 Dose: 40 units Losartan Potassium (Cozaar) 100 mg PO QDAY [facility] Last Admin: 05/02/16 10:50 Dose: 100 mg Magnesium Hydroxide (Milk Of Magnesia) 30 ml PO QDAY PRN PRN Reason: Constipation Last Admin: 05/02/16 23:03 Dose: 30 ml Pantoprazole Sodium (Protonix) 40 mg PO QDAY [facility] Sodium Chloride (Sodium Chloride Flush Syringe 10 Ml) 10 ml IV PRN PRN PRN Reason: LINE FLUSH Review of Systems All systems: negative Physical Examination Vital Signs BP 177/122 05/01/16 03:27 General appearance: no acute distress HEENT: Positive: PERRL Neck: Positive: neck supple Cardiac: Positive: Reg Rate and Rhythm Lungs: Positive: Decreased Breath Sounds Abdomen: Positive: Soft Extremities: Absent: edema Results 05/03/16 04:30 05/02/16 04:00 CBC 05/01/16 05/03/16 Range/Units Unknown 04:30 WBC 5.6 4.6 (4.5-11.0) K/mm3 RBC 4.67 4.47 (3.65-5.03) M/mm3 Hgb 13.5 13.0 (10.1-14.3) gm/dl Hct 42.7 40.6 (30.3-42.9) % Plt Count 218 204 (140-440) K/mm3 Lymph # 1.9 1.6 (1.2-5.4) K/mm3 [place] # 0.5 0.5 (0.0-0.8) K/mm3 Eos # 0.2 0.2 (0.0-0.4) K/mm3 Baso # 0.1 0.0 (0.0-0.1) K/mm3 EKG interpretations - Telemetry EKG Rhythm: Sinus Rhythm Assessment and Plan Shortness of breath Predominantly COPD in origin No signs of symptoms of heart failure BNP is lower than previous admission ECG showing no ischemic changes Troponin is negative Non-ischemic cardiomyopathy Echo 08/2015:moderate LVH, EF 20-25% MPI 08/2015 - No ischemia CAD [facility] 2006: ostial OM1 70-75%--> med management continue Plavix (ASA allergy) Hypertension stable Diabetes per primary CKD gentle diuresis monitor renal indices Recommendations: Continue current management per primary team No further cardiac intervention is needed Symptoms predominantly pulmonary in origin
[2016-05-03] MEDS: NOVOLOG SUB-Q SCH ×3 (12:24→21:49)
[2016-05-03] MEDS: LOVENOX SUB-Q SCH (12:38)
[2016-05-03] MEDS: PLAVIX PO SCH (12:40)
[2016-05-03] MEDS: ZYLOPRIM PO SCH (12:48)
[2016-05-03] MEDS: XANAX PO PRN (12:48)
[2016-05-03] MEDS: APRESOLINE PO SCH (12:49)
[2016-05-03] MEDS: COREG PO SCH ×2 (12:49→21:33)
[2016-05-03] MEDS: BACITRACIN ZINC OINT TP SCH ×2 (12:50→21:35)
[2016-05-03] MEDS: NORVASC PO SCH (13:05)
[2016-05-03] MEDS: COZAAR PO SCH (13:05)
[2016-05-03] MEDS: celeXA PO SCH (13:06)
[2016-05-03] MEDS: PROTONIX PO SCH (13:06)
--- NOTE | 2016-05-03 13:25 | Progress Note ---
Assessment and Plan Assessment and plan: 60F w pmh of CHF, non complaint with diet and medications 1. Chest pain; likely 2/2 uncontrolled CHF, serial trops negative, has had recent stress test in August 2015 which was negative, she is known to have NICM, cardiology input appreciated, no further workup 2. CHF exacerbation: continue lasix dose to 40mg BID, fup echo, cardiology input appreciated; counseled about improved compliance 3. COPD , not in exacerbation. Continue patient on bronchodilators. 4. Acute kidney injury: has now resolved with Diuresis 5. Diabetes mellitus. continue sliding scale 6. DVT prophylaxis with Lovenox, GI prophylaxis with Protonix 7. Hydradenitis; wound care and bacitracin ointment History Interval history: CP is resolved, SOb is improved, Hospitalist Physical - Physical exam Narrative exam: General: moderate respiratory distress, unable to speak in full sentences HEENT: MMM, EOMI cardiac: S1-S2 heard lungs: lungs clear abdomen: soft, nontender, bowel sounds positive, distended with shifting dullness extremities:trace bipedal edema Skin: purulent rash to right buttock and multiple old scars cw hydradenitis Neuro: no focal deficit Psych: appropriate behavior and mood, cognition intact - Constitutional Vitals: Temp Pulse Resp BP Pulse Ox 98.7 F 64 20 114/77 96 05/03/16 07:38 05/03/16 07:38 05/03/16 07:38 05/03/16 13:05 05/03/16 07:38 General appearance: Present: no acute distress Results - Labs CBC & Chem 7: 05/04/16 Unknown 05/04/16 07:38 Labs: Laboratory Last Values WBC 4.6 K/mm3 (4.5-11.0) 05/03/16 04:30 RBC 4.47 M/mm3 (3.65-5.03) 05/03/16 04:30 Hgb 13.0 gm/dl (10.1-14.3) 05/03/16 04:30 Hct 40.6 % (30.3-42.9) 05/03/16 04:30 MCV 91 fl (79-97) 05/03/16 04:30 MCH 29 pg (28-32) 05/03/16 04:30 MCHC 32 % (30-34) 05/03/16 04:30 RDW 14.1 % (13.2-15.2) 05/03/16 04:30 Plt Count 204 K/mm3 (140-440) 05/03/16 04:30 Lymph % (Auto) 33.5 % (13.4-35.0) 05/03/16 04:30 [place] % (Auto) 11.2 % (0.0-7.3) H 05/03/16 04:30 Eos % (Auto) 4.0 % (0.0-4.3) 05/03/16 04:30 Baso % (Auto) 0.6 % (0.0-1.8) 05/03/16 04:30 Lymph # 1.6 K/mm3 (1.2-5.4) 05/03/16 04:30 [place] # 0.5 K/mm3 (0.0-0.8) 05/03/16 04:30 Eos # 0.2 K/mm3 (0.0-0.4) 05/03/16 04:30 Baso # 0.0 K/mm3 (0.0-0.1) 05/03/16 04:30 Seg Neutrophils % 50.7 % (40.0-70.0) 05/03/16 04:30 Seg Neutrophils # 2.4 K/mm3 (1.8-7.7) 05/03/16 04:30 PT 13.5 Sec. (12.2-14.9) 05/01/16 Unknown INR 1.04 (0.87-1.13) 05/01/16 Unknown APTT 26.9 Sec. (24.2-36.6) 05/01/16 Unknown D-Dimer 169.64 ng/mlDDU (0-234) 05/01/16 Unknown POC ABG pH 7.282 (7.35-7.45) L 05/01/16 07:46 POC ABG pCO2 43.6 (35-45) 05/01/16 07:46 POC ABG pO2 57 (80-105) L 05/01/16 07:46 POC ABG HCO3 20.6 05/01/16 07:46 POC ABG Total CO2 22 05/01/16 07:46 POC ABG O2 Sat 85 05/01/16 07:46 POC ABG Base Excess -6 05/01/16 07:46 VBG pH 7.327 (7.320-7.420) 05/01/16 Unknown FiO2 28 % 05/01/16 07:46 Sodium 140 mmol/L (137-145) 05/02/16 04:00 Potassium 4.7 mmol/L (3.6-5.0) 05/02/16 04:00 Chloride 103.7 mmol/L (98-107) 05/02/16 04:00 Carbon Dioxide 25 mmol/L (22-30) 05/02/16 04:00 Anion Gap 16 mmol/L 05/02/16 04:00 BUN 22 mg/dL (7-17) H 05/02/16 04:00 Creatinine 1.2 mg/dL (0.7-1.2) 05/02/16 04:00 Estimated GFR 56 ml/min 05/02/16 04:00 BUN/Creatinine Ratio 18.33 % 05/02/16 04:00 Glucose 117 mg/dL (65-100) H 05/02/16 04:00 POC Glucose 117 (70-105) H 05/03/16 11:14 Calcium 8.0 mg/dL (8.4-10.2) L 05/02/16 04:00 Magnesium 1.9 mg/dL (1.7-2.3) 05/02/16 04:00 Total Bilirubin 0.2 mg/dL (0.1-1.2) 05/02/16 04:00 Direct Bilirubin < 0.2 mg/dL (0-0.2) 05/01/16 Unknown Indirect Bilirubin 0.1 mg/dL 05/01/16 Unknown AST 18 units/L (5-40) 05/02/16 04:00 ALT 16 units/L (7-56) 05/02/16 04:00 Alkaline Phosphatase 56 units/L (35-129) 05/02/16 04:00 Total Creatine Kinase 122 units/L (30-135) 05/02/16 04:00 CK-MB (CK-2) 3.0 ng/mL (0.0-4.0) 05/02/16 04:00 CK-MB (CK-2) Rel Index 2.4 (0-4) 05/02/16 04:00 Troponin T < 0.010 ng/mL (0.00-0.029) 05/02/16 04:00 NT-Pro-B Natriuret Pep 1793 pg/mL (0-900) H 05/01/16 Unknown Total Protein 6.2 g/dL (6.3-8.2) L 05/02/16 04:00 Albumin 3.7 g/dL (3.9-5) L 05/02/16 04:00 Albumin/Globulin Ratio 1.5 % 05/02/16 04:00 Urine Opiates Screen Presumptive negative 05/01/16 Unknown Urine Methadone Screen Presumptive negative 05/01/16 Unknown Ur Barbiturates Screen Presumptive negative 05/01/16 Unknown Ur Phencyclidine Scrn Presumptive negative 05/01/16 Unknown Ur Amphetamines Screen Presumptive negative 05/01/16 Unknown U Benzodiazepines Scrn Presumptive negative 05/01/16 Unknown Urine Cocaine Screen Presumptive negative 05/01/16 Unknown U Marijuana (THC) Screen Presumptive positive 05/01/16 Unknown Drugs of Abuse Note Disclamer 05/01/16 Unknown Ketones 1.5 mg/dL (0.2-2.8) 05/01/16 Unknown
[2016-05-03] MEDS: LEVEMIR SUB-Q SCH (21:34)
--- NOTE | 2016-05-03 22:34 | Consultation ---
History of Present Illness - Reason for Consult Consult date: 05/03/16 - History of Present Illness Patient resting in bed, I have read all the notes, including the cardiology. Patient problems, if pulm, is due to her OLMAN/obesity. She has been sent to out patient sleep study, but have not really followed up.non compliant. Past History Past Medical History: acute [place], COPD (w), diabetes, hypertension, other (had end -stage renal disease on hemodialysis that was eventually discontinued in 2012 after having a function improved) Past Surgical History: Other (renal stents many years ago) Social history: single. denies: smoking, alcohol abuse Family history: denies: no significant family history Medications and Allergies Allergies Allergy/AdvReac Type Severity Reaction Status Date / Time BONNIE Inhibitors Allergy Rash Verified 10/21/14 14:32 aspirin Allergy Rash Verified 10/21/14 14:32 peach [[place]] Allergy Rash Verified 10/21/14 14:32 Home Medications Medication Instructions Recorded Confirmed Last Taken Type Albuterol Sulfate [Proventil HFA] 1 - 2 puff IH Q4H PRN 11/22/12 05/01/16 04:00 History 1-2 Clopidogrel [Plavix] 75 mg PO QDAY 11/22/12 05/01/16 12/30/12 04:00 History 75mg Losartan [Cozaar] 100 mg PO QDAY 11/22/12 05/01/16 12/30/12 04:00 History 100mg hydrALAZINE [Apresoline TAB] 25 mg PO Q12H 11/22/12 05/01/16 12/30/12 04:00 History 25mg Gabapentin [Neurontin] 300 mg PO Q8HR 09/11/15 05/01/16 Unknown History Insulin Detemir [Levemir VIAL] 40 unit SQ QHS 09/15/15 05/01/16 09/11/15 20:00 History 40 units ALPRAZolam [Xanax TAB] 0.5 mg PO TID PRN 05/01/16 05/01/16 Unknown History Allopurinol [Zyloprim] 100 mg PO QDAY 05/01/16 05/01/16 Unknown History Carvedilol [Coreg] 6.25 mg PO BID 05/01/16 05/01/16 Unknown History Citalopram [celeXA] 20 mg PO QDAY 05/01/16 05/01/16 Unknown History Clopidogrel [Plavix] 75 mg PO QDAY 05/01/16 05/01/16 Unknown History Furosemide [Lasix TAB] 40 mg PO QDAY 05/01/16 05/01/16 Unknown History HYDROcodone/APAP 10-325 [[place] 1 each PO DAILY 05/01/16 05/01/16 Unknown History 10/325] Hydrochlorothiazide [Hctz] 12.5 mg PO QDAY 05/01/16 05/01/16 Unknown History Pantoprazole [Protonix] 40 mg PO QDAY 05/01/16 05/01/16 Unknown History Ranitidine HCl [Acid Control] 150 mg PO DAILY 05/01/16 05/01/16 Unknown History Zolpidem [Ambien] 5 mg PO QHS PRN 05/01/16 05/01/16 Unknown History amLODIPine [Norvasc] 10 mg PO DAILY 05/01/16 05/01/16 Unknown History Active Meds: Active Medications Acetaminophen/Hydrocodone Bitart ([place] 10/325) 1 each PO Q6HR [facility] Last Admin: 05/03/16 21:33 Dose: 1 each Albuterol (Proventil) 2.5 mg IH Q6HRT [facility] Last Admin: 05/03/16 19:36 Dose: 2.5 mg Allopurinol (Zyloprim) 100 mg PO QDAY [facility] Last Admin: 05/03/16 12:48 Dose: 100 mg Alprazolam (Xanax) 0.5 mg PO TID PRN PRN Reason: Anxiety Last Admin: 05/03/16 12:48 Dose: 0.5 mg Amlodipine Besylate (Norvasc) 10 mg PO DAILY [facility] Last Admin: 05/03/16 13:05 Dose: 10 mg Bacitracin (Bacitracin Zinc Oint) 1 applic TP BID [facility] Last Admin: 05/03/16 21:35 Dose: 1 applic Carvedilol (Coreg) 6.25 mg PO BID [facility] Last Admin: 05/03/16 21:33 Dose: 6.25 mg Citalopram Hydrobromide (Celexa) 20 mg PO QDAY [facility] Last Admin: 05/03/16 13:06 Dose: Not Given Clopidogrel Bisulfate (Plavix) 75 mg PO QDAY [facility] Last Admin: 05/03/16 12:40 Dose: 75 mg Dextrose (D50w (25gm)) 50 ml IV PRN PRN PRN Reason: Hypoglycemia Enoxaparin Sodium (Lovenox) 40 mg SUB-Q QDAY@1000 [facility] Last Admin: 05/03/16 12:38 Dose: 40 mg Furosemide (Lasix) 40 mg IV Q12H [facility] Last Admin: 05/03/16 15:14 Dose: 40 mg Gabapentin (Neurontin) 300 mg PO Q8HR [facility] Last Admin: 05/03/16 21:33 Dose: 300 mg Hydralazine HCl (Apresoline) 25 mg PO Q12H [facility] Last Admin: 05/03/16 12:49 Dose: 25 mg Insulin Aspart (Novolog) 0 units SUB-Q ACHS [facility] PRN Reason: Protocol Last Admin: 05/03/16 21:49 Dose: Not Given Insulin Detemir (Levemir) 40 units SUB-Q QHS [facility] Last Admin: 05/03/16 21:34 Dose: 40 units Losartan Potassium (Cozaar) 100 mg PO QDAY [facility] Last Admin: 05/03/16 13:05 Dose: 100 mg Magnesium Hydroxide (Milk Of Magnesia) 30 ml PO QDAY PRN PRN Reason: Constipation Last Admin: 05/02/16 23:03 Dose: 30 ml Pantoprazole Sodium (Protonix) 40 mg PO QDAY [facility] Last Admin: 05/03/16 13:06 Dose: 40 mg Sodium Chloride (Sodium Chloride Flush Syringe 10 Ml) 10 ml IV PRN PRN PRN Reason: LINE FLUSH Review of Systems Constitutional: chronic pain Breasts: deferred Cardiovascular: orthopnea Respiratory: shortness of breath Neurological: parathesias Exam - Constitutional Vitals: Temp Pulse Resp BP Pulse Ox 97.9 F 76 20 111/60 98 05/03/16 20:10 05/03/16 21:33 05/03/16 21:45 05/03/16 21:33 05/03/16 20:10 General appearance: Present: mild distress, well-nourished - EENT Eyes: Present: PERRL ENT: hearing intact, clear oral mucosa - Neck Neck: Present: supple, normal ROM - Respiratory Respiratory: bilateral: rhonchi - Cardiovascular Heart Sounds: Present: S1 & S2. Absent: rub, click - Extremities Extremities: pulses symmetrical, No edema Peripheral Pulses: within normal limits - Abdominal General gastrointestinal: Present: soft, non-tender, non-distended, normal bowel sounds Female genitourinary: Present: deferred - Rectal Rectal Exam: deferred - Integumentary Integumentary: Present: clear, warm, dry - Musculoskeletal Musculoskeletal: gait normal, strength equal bilaterally - Psychiatric Psychiatric: appropriate mood/affect, intact judgment & insight - Neurologic Neurologic: CNII-XII intact, moves all extremities Results - Labs CBC & Chem 7: 05/03/16 04:30 05/02/16 04:00 Labs: Abnormal lab results 05/01/16 05/02/16 05/03/16 Range/Units Unknown 15:35 04:30 [place] % (Auto) 8.7 H 11.2 H (0.0-7.3) % POC Glucose 147 H (70-105) 05/03/16 05/03/16 05/03/16 Range/Units 11:14 16:54 21:17 [place] % (Auto) (0.0-7.3) % POC Glucose 117 H 148 H 127 H (70-105) Assessment and Plan - Patient Problems (1) COPD (chronic obstructive pulmonary disease) Current Visit: Yes Status: Acute Qualifiers: COPD type: unspecified COPD Chronic bronchitis type: C Emphysema type: E Qualified Code(s): J44.9 - Chronic obstructive pulmonary disease, unspecified Plan to address problem: oxygen support (2) Chest pain Current Visit: Yes Status: Acute Qualifiers: Chest pain type: unspecified Qualified Code(s): R07.9 - Chest pain, unspecified Plan to address problem: Follow cardiology (3) Dilated cardiomyopathy Current Visit: Yes Status: Acute Plan to address problem: Follow diuretic. (4) Chest pain Current Visit: No Status: Acute Qualifiers: Chest pain type: unspecified Qualified Code(s): R07.9 - Chest pain, unspecified Plan to address problem: Follow cardiology rec (5) CHF (congestive heart failure) Current Visit: No Status: Chronic Qualifiers: Congestive heart failure type: combined Congestive heart failure chronicity : acute on chronic Qualified Code(s): I50.43 - Acute on chronic combined systolic (congestive) and diastolic (congestive) heart failure Plan to address problem: Same as above. (6) Dyspnea Current Visit: No Status: Acute Qualifiers: Dyspnea type: unspecified Qualified Code(s): R06.00 - Dyspnea, unspecified Plan to address problem: supportive
[2016-05-04] MEDS: NORCO 10/325 PO SCH ×3 (01:07→11:43)
[2016-05-04] MEDS: PROVENTIL IH SCH ×3 (01:27→13:58)
[2016-05-04] MEDS: NEURONTIN PO SCH (05:48)
[2016-05-04] MEDS ORDERED: LASIX IV SCH (06:00)
[2016-05-04] MEDS: APRESOLINE PO SCH ×2 (06:05→12:21)
[2016-05-04 06:41] LABS: Albumin 3.9 g/dL (3.9-5); Albumin/Globulin Ratio 1.4 %; BUN/Creatinine Ratio 28.46; Bilirubin,Total 0.3 mg/dL (0.1-1.2); Calcium 8.2 mg/dL (8.4-10.2); Chloride 99.7 mmol/L (98-107); Total Protein 6.6 g/dL (6.3-8.2)
[2016-05-04 06:45] LABS: Basophils % (Auto) 0.7 % (0.0-1.8); Eosinophils % (Auto) 3.9 % (0.0-4.3); Hematocrit 42.1 % (30.3-42.9); Hemoglobin 13.6 gm/dl (10.1-14.3); Mean Corpuscular HGB Conc 32 % (30-34); Mean Corpuscular Hemoglobin 29 pg (28-32); Mean Corpuscular Volume 91 fl (79-97); Platelet Count 218 K/mm3 (140-440); Red Blood Count 4.64 M/mm3 (3.65-5.03); Red Cell Distribution Width 14.3 % (13.2-15.2); White Blood Count 4.4 K/mm3 (4.5-11.0)
[2016-05-04 08:19] LABS: Albumin 3.8 g/dL (3.9-5); Albumin/Globulin Ratio 1.5 %; BUN/Creatinine Ratio 27.14; Bilirubin,Total 0.3 mg/dL (0.1-1.2); Calcium 8.4 mg/dL (8.4-10.2); Chloride 99.2 mmol/L (98-107); Potassium 5.3 mmol/L (3.6-5.0); Total Protein 6.4 g/dL (6.3-8.2)
[2016-05-04] MEDS ORDERED: KIONEX PO ONE (10:00)
--- NOTE | 2016-05-04 10:38 | Progress Note ---
Assessment and Plan Shortness of breath Predominantly COPD in origin No signs of symptoms of heart failure BNP is lower than previous admission ECG showing no ischemic changes Troponin is negative Non-ischemic cardiomyopathy Echo 08/2015:moderate LVH, EF 20-25% MPI 08/2015 - No ischemia CAD [facility] 2006: ostial OM1 70-75%--> med management continue Plavix (ASA allergy) Hypertension Diabetes CKD Recommendations: Continue medical management for nonischemic cardiomyopathy. Subjective Date of service: 05/04/16 Interval history: Patient reports shortness of breath is less. Objective Vital Signs Temp Pulse Pulse Pulse Resp Resp BP 05/04/16 08:10 78 18 05/04/16 07:53 05/04/16 07:52 76 18 05/04/16 07:22 98.0 F 68 20 05/04/16 05:16 98 F 79 20 05/04/16 00:05 97.6 F 84 18 05/03/16 21:45 20 05/03/16 21:33 76 111/60 05/03/16 20:10 97.9 F 64 20 05/03/16 19:58 78 20 05/03/16 19:38 74 22 05/03/16 19:18 71 05/03/16 16:45 97.8 F 74 20 05/03/16 16:10 64 18 05/03/16 15:45 68 20 05/03/16 15:00 84 05/03/16 13:05 114/77 05/03/16 12:49 114/66 05/03/16 12:40 66 18 BP Pulse Ox 05/04/16 08:10 05/04/16 07:53 96 05/04/16 07:52 05/04/16 07:22 106/76 100 05/04/16 05:16 128/64 05/04/16 00:05 121/68 96 05/03/16 21:45 05/03/16 21:33 05/03/16 20:10 111/60 98 05/03/16 19:58 05/03/16 19:38 100 05/03/16 19:18 05/03/16 16:45 129/82 100 05/03/16 16:10 05/03/16 15:45 05/03/16 15:00 05/03/16 13:05 05/03/16 12:49 05/03/16 12:40 - Physical Examination General: No Apparent Distress HEENT: Positive: PERRL Neck: Positive: neck supple Cardiac: Positive: Reg Rate and Rhythm Lungs: Positive: Decreased Breath Sounds Neuro: Positive: Grossly Intact Extremities: Absent: edema - Labs and Meds Cardiac Enzymes 05/03/16 05/04/16 Range/Units Unknown 07:38 AST 18 15 (5-40) units/L CBC 05/04/16 Range/Units Unknown WBC 4.4 L (4.5-11.0) K/mm3 RBC 4.64 (3.65-5.03) M/mm3 Hgb 13.6 (10.1-14.3) gm/dl Hct 42.1 (30.3-42.9) % Plt Count 218 (140-440) K/mm3 Lymph # 1.4 (1.2-5.4) K/mm3 [place] # 0.5 (0.0-0.8) K/mm3 Eos # 0.2 (0.0-0.4) K/mm3 Baso # 0.0 (0.0-0.1) K/mm3 Comprehensive Metabolic Panel 05/03/16 05/04/16 Range/Units Unknown 07:38 Sodium 137 139 (137-145) mmol/L Potassium 5.0 5.3 H (3.6-5.0) mmol/L Chloride 99.7 99.2 (98-107) mmol/L Carbon Dioxide 23 26 (22-30) mmol/L BUN 37 H 38 H (7-17) mg/dL Creatinine 1.3 H 1.4 H (0.7-1.2) mg/dL Glucose 141 H 143 H (65-100) mg/dL Calcium 8.2 L 8.4 (8.4-10.2) mg/dL AST 18 15 (5-40) units/L ALT 15 15 (7-56) units/L Alkaline Phosphatase 64 59 (35-129) units/L Total Protein 6.6 6.4 (6.3-8.2) g/dL Albumin 3.9 3.8 L (3.9-5) g/dL
[2016-05-04] MEDS: COREG PO SCH (11:41)
[2016-05-04] MEDS: ZYLOPRIM PO SCH (11:42)
[2016-05-04] MEDS: NORVASC PO SCH (11:42)
[2016-05-04] MEDS: celeXA PO SCH (11:42)
[2016-05-04] MEDS: PROTONIX PO SCH (11:42)
[2016-05-04] MEDS: COZAAR PO SCH (11:44)
[2016-05-04] MEDS: PLAVIX PO SCH (11:44)
[2016-05-04] MEDS: BACITRACIN ZINC OINT TP SCH (11:45)
[2016-05-04] MEDS: LOVENOX SUB-Q SCH (11:45)
[2016-05-04] MEDS: NOVOLOG SUB-Q SCH (12:00)
[2016-05-04 12:22] VITALS: BP 135/66
--- NOTE | 2016-05-04 12:38 | Discharge Summary ---
Providers - Providers Date of Admission: 05/01/16 09:58 Attending physician: DAISY SU MD 05/01/16 Consult to Cardiac Rehabilitation [CONS] Routine Reason For Exam: Phase I 05/02/16 14:51 Consult to Physician [CONS] Routine Consulting Provider: JOSE ALFREDO MANTILLA Reason For Exam: CHF and chest pain Place consult to:: [place] Notified:: yes Phone number called:: [phone] If yes, spoke with:: luis Comment:: [phone] 05/02/16 16:45 Consult to Wound/ET Nurse [CONS] Routine Reason For Exam: wound eval, Left buttock Primary care physician: JUAN F ORTIZ Hospitalization Condition: Stable Hospital course: 60F w pmh of CHF, non complaint with diet and medications, who presents with anarsarca, she was diuresed and medications were optimized, she was then weaned off oxygen, she clinically improved and was dc home about she was counseled on improved compliance DC Diagnosis 1. CHF exacerbation 2. GRACIELA 3. COPD- chronic 4. Acute hypoxic respiratory failure Disposition: DISCHARGED TO HOME OR SELFCARE Time spent for discharge: 35 minutes Core Measure Documentation - Palliative Care Palliative Care/ Comfort Measures: Not Applicable - Core Measures Any of the following diagnoses?: heart failure - Heart Failure Discharge Requirements BONNIE/ARB for LVSD if EF <40%: Yes Beta bo at discharge: Yes Exam - Constitutional Vitals: Temp Pulse Resp BP Pulse Ox 98.0 F 84 18 135/66 96 05/04/16 07:22 05/04/16 11:44 05/04/16 08:10 05/04/16 12:21 05/04/16 07:53 General appearance: Present: no acute distress, well-nourished - EENT Eyes: Present: PERRL ENT: hearing intact, clear oral mucosa - Neck Neck: Present: supple, normal ROM - Respiratory Respiratory effort: normal Respiratory: bilateral: CTA - Cardiovascular Heart Sounds: Present: S1 & S2. Absent: rub, click - Extremities Extremities: pulses symmetrical, No edema Peripheral Pulses: within normal limits - Abdominal General gastrointestinal: Present: soft, non-tender, non-distended, normal bowel sounds Female genitourinary: Present: normal - Integumentary Integumentary: Present: clear, warm, dry - Musculoskeletal Musculoskeletal: gait normal, strength equal bilaterally - Psychiatric Psychiatric: appropriate mood/affect, intact judgment & insight - Neurologic Neurologic: CNII-XII intact, moves all extremities Plan Follow up with: JUAN F ORTIZ DO [Primary Care Provider] - 3-5 Days TRACIE QUINTEROS MD [Staff Physician] - 7 Days Prescriptions: Insulin Detemir [Levemir VIAL] 40 unit SQ QHS 30 Days Allopurinol [Zyloprim] 100 mg PO QDAY #30 tablet ALPRAZolam [Xanax TAB] 0.5 mg PO TID PRN #30 tablet PRN Reason: Anxiety amLODIPine [Norvasc] 10 mg PO DAILY #30 tablet Bacitracin Zinc Oint 1 applic TP BID #1 tube Carvedilol [Coreg] 6.25 mg PO BID #60 tablet Citalopram [Celexa] 20 mg PO QDAY #30 tablet Clopidogrel [Plavix] 75 mg PO QDAY #30 tablet Furosemide [Lasix TAB] 40 mg PO QDAY #30 tablet Gabapentin [Neurontin] 300 mg PO Q8HR #90 capsule hydrALAZINE [Apresoline TAB] 25 mg PO Q12H #60 tablet HYDROcodone/APAP 10-325 [[place] 10-325 mg TAB] 1 each PO DAILY #30 tablet Ipratropium/Albuterol Sulfate [Combivent Respimat] 1 spray IH QID #1 aer.w.adap Losartan [Cozaar] 100 mg PO QDAY #30 tablet Pantoprazole [Protonix TAB] 40 mg PO QDAY #30 tablet
--- NOTE | 2016-05-04 13:25 | Event Note ---
Date: 05/04/16 Patient is a regular office patient of Erick Deras/[facility]. We will refer to their service for continued cardiac care. Remove from my consult list.
[2016-05-04] MEDS ORDERED: FLUSH HEPARIN IV ONE ×2 (15:48→15:49)
--- NOTE | 2016-05-04 22:14 | Consultation ---
History of Present Illness - Reason for Consult Consult date: 05/04/16 - History of Present Illness patient seen/examined, early this am, had extensive discussion with her about non compliance in the office. i have also cautioned her about using THC.I will repeat sleep study, and set her up with C-PAP., and home oxygen. Past History Past Medical History: acute [place], COPD (w), diabetes, hypertension, other (had end -stage renal disease on hemodialysis that was eventually discontinued in 2012 after having a function improved) Past Surgical History: Other (renal stents many years ago) Social history: single. denies: smoking, alcohol abuse Family history: denies: no significant family history Medications and Allergies Allergies Allergy/AdvReac Type Severity Reaction Status Date / Time BONNIE Inhibitors Allergy Rash Verified 10/21/14 14:32 aspirin Allergy Rash Verified 10/21/14 14:32 peach [[place]] Allergy Rash Verified 10/21/14 14:32 Home Medications Medication Instructions Recorded Confirmed Last Taken Type ALPRAZolam [Xanax TAB] 0.5 mg PO TID PRN #30 tablet 05/04/16 Unknown Rx Allopurinol [Zyloprim] 100 mg PO QDAY #30 tablet 05/04/16 Unknown Rx Bacitracin Zinc Oint 1 applic TP BID #1 tube 05/04/16 Unknown Rx Carvedilol [Coreg] 6.25 mg PO BID #60 tablet 05/04/16 Unknown Rx Citalopram [Celexa] 20 mg PO QDAY #30 tablet 05/04/16 Unknown Rx Clopidogrel [Plavix] 75 mg PO QDAY #30 tablet 05/04/16 Unknown Rx Furosemide [Lasix TAB] 40 mg PO QDAY #30 tablet 05/04/16 Unknown Rx Gabapentin [Neurontin] 300 mg PO Q8HR #90 capsule 05/04/16 Unknown Rx HYDROcodone/APAP 10-325 [[place] 1 each PO DAILY #30 tablet 05/04/16 Unknown Rx 10-325 mg TAB] Insulin Detemir [Levemir VIAL] 40 unit SQ QHS 30 Days 05/04/16 Unknown Rx Ipratropium/Albuterol Sulfate 1 spray IH QID #1 aer.w.adap 05/04/16 Unknown Rx [Combivent Respimat] Losartan [Cozaar] 100 mg PO QDAY #30 tablet 05/04/16 Unknown Rx Pantoprazole [Protonix TAB] 40 mg PO QDAY #30 tablet 05/04/16 Unknown Rx amLODIPine [Norvasc] 10 mg PO DAILY #30 tablet 05/04/16 Unknown Rx hydrALAZINE [Apresoline TAB] 25 mg PO Q12H #60 tablet 05/04/16 Unknown Rx Review of Systems Constitutional: chronic pain Breasts: deferred Exam - Constitutional Vitals: Temp Pulse Resp BP Pulse Ox 98.0 F 76 18 135/66 96 05/04/16 07:22 05/04/16 13:58 05/04/16 13:58 05/04/16 12:21 05/04/16 07:53 General appearance: Present: no acute distress, well-nourished - EENT Eyes: Present: PERRL ENT: hearing intact, clear oral mucosa - Neck Neck: Present: supple, normal ROM - Respiratory Respiratory effort: normal Respiratory: bilateral: CTA - Cardiovascular Heart Sounds: Present: S1 & S2. Absent: rub, click - Extremities Extremities: pulses symmetrical, No edema Peripheral Pulses: within normal limits - Abdominal General gastrointestinal: Present: soft, non-tender, non-distended, normal bowel sounds Female genitourinary: Present: deferred - Integumentary Integumentary: Present: clear, warm, dry - Musculoskeletal Musculoskeletal: gait normal, strength equal bilaterally - Psychiatric Psychiatric: appropriate mood/affect, intact judgment & insight - Neurologic Neurologic: CNII-XII intact, moves all extremities Results - Labs CBC & Chem 7: 05/04/16 Unknown 05/04/16 07:38 Labs: Abnormal lab results 05/03/16 05/04/16 05/04/16 Range/Units Unknown 07:38 Unknown WBC 4.4 L (4.5-11.0) K/mm3 [place] % (Auto) 12.2 H (0.0-7.3) % Potassium 5.3 H (3.6-5.0) mmol/L BUN 37 H 38 H (7-17) mg/dL Creatinine 1.3 H 1.4 H (0.7-1.2) mg/dL Glucose 141 H 143 H (65-100) mg/dL Calcium 8.2 L (8.4-10.2) mg/dL Albumin 3.8 L (3.9-5) g/dL Assessment and Plan - Patient Problems (1) COPD (chronic obstructive pulmonary disease) Status: Acute Qualifiers: COPD type: unspecified COPD Chronic bronchitis type: C Emphysema type: E Qualified Code(s): J44.9 - Chronic obstructive pulmonary disease, unspecified Plan to address problem: oxygen support (2) Chest pain Status: Acute Qualifiers: Chest pain type: unspecified Qualified Code(s): R07.9 - Chest pain, unspecified Plan to address problem: Follow cardiology (3) Dilated cardiomyopathy Status: Acute Plan to address problem: Follow diuretic. (4) Chest pain Status: Acute Qualifiers: Chest pain type: unspecified Qualified Code(s): R07.9 - Chest pain, unspecified Plan to address problem: Follow cardiology rec (5) CHF (congestive heart failure) Status: Chronic Qualifiers: Congestive heart failure type: combined Congestive heart failure chronicity : acute on chronic Qualified Code(s): I50.43 - Acute on chronic combined systolic (congestive) and diastolic (congestive) heart failure Plan to address problem: Same as above. (6) Dyspnea Status: Acute Qualifiers: Dyspnea type: unspecified Qualified Code(s): R06.00 - Dyspnea, unspecified Plan to address problem: supportive agree with d/c home.
[2016-05-05] MEDS ORDERED: FLUARIX QUAD 2016-2017(36 MOS+) IM ONE (12:00)
== END 2016-05-04 18:20 | disposition home or self-care (01) | DRG 682 ==
LOC: ED 03:06 → 4A 09:58
PROVIDERS: ADMIT Family Medicine; ATTEND Internal Medicine
PROC: 4A033R1 Measurement of Arterial Saturation, Peripheral, Percutaneous Approach (ICD-10-PCS; principal; 2016-05-01)
DX: N17.9 Acute kidney failure, unspecified (principal); I50.43 Acute on chronic combined systolic (congestive) and diastolic (congestive) heart failure; J96.01 Acute respiratory failure with hypoxia; I13.2 Hypertensive heart and chronic kidney disease with heart failure and with stage 5 chronic kidney disease, or end stage renal disease; N18.6 End stage renal disease; L73.2 Hidradenitis suppurativa; E66.9 Obesity, unspecified; I25.10 Atherosclerotic heart disease of native coronary artery without angina pectoris; I42.0 Dilated cardiomyopathy; E11.22 Type 2 diabetes mellitus with diabetic chronic kidney disease; J44.9 Chronic obstructive pulmonary disease, unspecified; Z88.6 Allergy status to analgesic agent; Z88.8 Allergy status to other drugs, medicaments and biological substances; Z91.02 Food additives allergy status; Z91.14 Patient's other noncompliance with medication regimen; Z68.41 Body mass index [BMI] 40.0-44.9, adult; Z99.2 Dependence on renal dialysis; Z91.11 Patient's noncompliance with dietary regimen
CPT/HCPCS: 36415; 71010; 80048; 80053; 80074; 80307; 82010; 82550; 82553; 82803; 82805; 82962; 83735; 83880; 84484; 85025; 85379; 85610; 85730; 93005; 93010; 93306; 94640; 94760; 96374; 96375; J1642; J1650; J1815; J1818; J1940; J2060; J2270; J2405

== ENCOUNTER 2016-09-08 10:52 | Outpatient (CLI) | payer MEDICAID ==
--- NOTE | 2016-09-08 13:36 | XRay Report ---
CERVICAL SPINE WITH OBLIQUES FIVE VIEWS: 09/08/16 10:52:00 CLINICAL: Enlarged lymph node. FINDINGS: Normal vertebral body height, alignment and disk spaces through T1. No neural foraminal stenosis. No fracture or subluxation. Normal soft tissues and airway. A left upper cervical lymph node versus submandibular gland measures 2+ centimeters in size. No other mass or lymphadenopathy. A right [id number]. IMPRESSION: An enlarged left upper cervical lymph node versus submandibular gland. Consider CT neck with contrast.
== END 2016-09-08 10:53 | disposition home or self-care (01) ==
LOC: XRAY 10:52
PROVIDERS: ATTEND Internal Medicine Hematology & Oncology
DX: R59.9 Enlarged lymph nodes, unspecified (principal); R20.0 Anesthesia of skin; I13.2 Hypertensive heart and chronic kidney disease with heart failure and with stage 5 chronic kidney disease, or end stage renal disease; I50.9 Heart failure, unspecified; N18.6 End stage renal disease; D63.1 Anemia in chronic kidney disease; J44.9 Chronic obstructive pulmonary disease, unspecified; Z79.899 Other long term (current) drug therapy
CPT/HCPCS: 72050